=== PATIENT | female | born 1955 | race Caucasian/White ===

== ENCOUNTER 2017-05-19 07:26 | Day surgery (SDC) | payer BC ==
[~2017-05-19 07:26] MED LIST: Acetaminophen TAB* 325 MG PO PRN; Buffered Lidocaine 0.9% SYRIN* 5 ML/SYR SYRINGE INTRADERM ONE
[2017-05-19] MEDS ORDERED: Midazolam* 1 MG/ML 2 ML VIAL (2 MG) ONE (09:05)
[2017-05-19 10:06] VITALS: BP 117/69
[2017-05-19] MEDS ORDERED: Cyclopentolate 1% OPTH.SOL* 2 ML BTL ONE (10:36)
[2017-05-19] MEDS ORDERED: Ketorolac 0.5% OPHTH (NF) 0.5 % 5 ML BTL ONE (10:36)
[2017-05-19] MEDS ORDERED: Lidocaine 2% EPI 1:200000 MPF* 20 ML VIAL ONE (10:36)
[2017-05-19] MEDS ORDERED: Lidocaine 1% MPF* 2 ML VIAL ONE (10:36)
[2017-05-19] MEDS ORDERED: acetaZOLAMIDE TAB* 250 MG ONE (10:36)
[2017-05-19] MEDS ORDERED: Povidone Iodine 5% OPTH* 30 ML BTL ONE (10:36)
[2017-05-19] MEDS ORDERED: Phenylephrine 2.5% OPTH.SOL* 2 ML BTL ONE (10:36)
[2017-05-19] MEDS ORDERED: Neomycin/Polymy/Dex OPTH.SUSP* MAXITROL 0.1% 5 ML ONE (10:36)
[2017-05-19] MEDS ORDERED: Proparacaine 0.5% OPHTH.SOL* 15 ML BTL ONE (10:36)
--- NOTE | 2017-05-19 11:22 | OP ---
DATE OF OPERATION: 05/19/2017. DATE OF : 1955. SURGEON: Ger Diaz M.D. PREOPERATIVE DIAGNOSIS: Cataract right eye. POSTOPERATIVE DIAGNOSIS: Cataract right eye. OPERATIVE PROCEDURE: Extracapsular cataract extraction with intraocular lens implant right eye. PROCEDURE: The patient was brought to the operating room after being given 1/2% Alcaine with epineph rine drops in the preoperative area. The eye was prepped and draped in the usual sterile fashion. S terile drape and eyelid speculum were placed. Again, topical 1/2% Alcaine with epinephrine was given . A paracentesis incision was made at the 9 o'clock position with the No.75 blade. Clear cornea inc ision 2.2 x 2.2-mm was created at the 12 o'clock position starting at the anterior limbus using the 2 .2-mm keratome. The anterior chamber was irrigated with 0.4 mL of 1% non-preservative intracameral l idocaine and filled with DisCoVisc. A capsulorrhexis was completed using the cystotome and the Utrat a forceps. Hydrodissection was performed with balanced salt solution. The lens nucleus was removed w ith the Phacoemulsification handpiece without incident. Cortex was removed with the irrigation-aspir ation handpiece. The capsular bag was re-inflated using DisCoVisc and an [id number] implant was inser rick with the shooter. The irrigation-aspiration handpiece was used to remove all residual DisCoVisc. The eye was refilled with balanced salt solution and the wound checked and found to be watertight. Topical Maxitrol drops were given. [id number]/[facility] #: [id number]
== END 2017-05-19 10:00 | disposition home or self-care (01) ==
LOC: OREAST 07:26
PROVIDERS: ATTEND Specialist
DX: H25.813 Combined forms of age-related cataract, bilateral (principal); H40.053 Ocular hypertension, bilateral; J30.2 Other seasonal allergic rhinitis; I10 Essential (primary) hypertension; E78.00 Pure hypercholesterolemia, unspecified; F32.9 Major depressive disorder, single episode, unspecified; R53.83 Other fatigue; E55.9 Vitamin D deficiency, unspecified; F17.210 Nicotine dependence, cigarettes, uncomplicated; Z79.82 Long term (current) use of aspirin; Z88.8 Allergy status to other drugs, medicaments and biological substances; Z83.511 Family history of glaucoma; Z11.59 Encounter for screening for other viral diseases
CPT/HCPCS: A9270-GY; J2250; V2632

== ENCOUNTER 2017-05-26 06:51 | Day surgery (SDC) | payer BC ==
[2017-05-26] MEDS ORDERED: fentaNYL* 50 MCG/ML 2 ML VIAL (100 MCG VIAL) ONE (07:40)
[2017-05-26] MEDS ORDERED: Midazolam* 1 MG/ML 2 ML VIAL (2 MG) ONE (07:40)
[2017-05-26 08:42] VITALS: BP 107/63
[2017-05-26] MEDS ORDERED: Lidocaine 2% EPI 1:200000 MPF* 20 ML VIAL ONE (11:50)
[2017-05-26] MEDS ORDERED: Proparacaine 0.5% OPHTH.SOL* 15 ML BTL ONE (11:50)
[2017-05-26] MEDS ORDERED: Neomycin/Polymy/Dex OPTH.SUSP* MAXITROL 0.1% 5 ML ONE (11:50)
[2017-05-26] MEDS ORDERED: acetaZOLAMIDE TAB* 250 MG ONE (11:50)
[2017-05-26] MEDS ORDERED: Povidone Iodine 5% OPTH* 30 ML BTL ONE (11:50)
[2017-05-26] MEDS ORDERED: Phenylephrine 2.5% OPTH.SOL* 2 ML BTL ONE (11:50)
[2017-05-26] MEDS ORDERED: Cyclopentolate 1% OPTH.SOL* 2 ML BTL ONE (11:50)
[2017-05-26] MEDS ORDERED: Lidocaine 1% MPF* 2 ML VIAL ONE (11:50)
[2017-05-26] MEDS ORDERED: Ketorolac 0.5% OPHTH (NF) 0.5 % 5 ML BTL ONE (11:50)
--- NOTE | 2017-05-26 13:54 | OP ---
DATE OF OPERATION: 05/26/17 - [facility] DATE OF : 55. SURGEON: Ger Diaz M.D. PREOPERATIVE DIAGNOSIS: Cataract left eye. POSTOPERATIVE DIAGNOSIS: Cataract left eye. OPERATIVE PROCEDURE: Extracapsular cataract extraction with intraocular lens implant left eye. DESCRIPTION OF PROCEDURE: The patient was brought to the operating room after being given 1/2% Alcaine with epinephrine drops in the preoperative area. The eye was prepped and draped in the usual sterile fashion. Sterile drape and eyelid speculum were placed. Again, topical 1/2% Alcaine with epinephrine was given. A paracentesis incision was made at the 3 o'clock position with the No.75 blade. Clear cornea incision 2.2 x 2.2-mm was created at the 6 o'clock position starting at the anterior limbus using the 2.2-mm keratome. The anterior chamber was irrigated with 0.4 mL of 1% non-preservative intracameral lidocaine and filled with DisCoVisc. A capsulorrhexis was completed using the cystotome and the Utrata forceps. Hydrodissection was performed with balanced salt solution. The lens nucleus was removed with the Phacoemulsification handpiece without incident. Cortex was removed with the irrigation-aspiration handpiece. The capsular bag was re-inflated using DisCoVisc and an [id number] 24 implant was inserted with the shooter. The irrigation-aspiration handpiece was used to remove all residual DisCoVisc. The eye was refilled with balanced salt solution and the wound checked and found to be watertight. Topical Maxitrol drops were given. [id number]/[facility] #: [id number] MTDD
== END 2017-05-26 08:37 | disposition home or self-care (01) ==
LOC: OREAST 06:51
PROVIDERS: ATTEND Specialist
DX: H25.812 Combined forms of age-related cataract, left eye (principal); H40.053 Ocular hypertension, bilateral; Z83.511 Family history of glaucoma; F17.210 Nicotine dependence, cigarettes, uncomplicated; I10 Essential (primary) hypertension
CPT/HCPCS: A9270-GY; J2250; J3010; V2632

== ENCOUNTER 2018-11-21 08:18 | Observation (INO) | payer BC ==
[2018-11-21] MEDS ORDERED: Diazepam TAB(*) 5 MG ONE (09:31)
[2018-11-21] MEDS ORDERED: diPHENhydraMINE PO* 25 MG ONE (09:31)
[2018-11-21] MEDS ORDERED: Aspirin 81 mg CHEW TAB* 81 MG TAB.CHEW ONE (10:08)
[2018-11-21] MEDS ORDERED: fentaNYL* 50 MCG/ML 2 ML VIAL (100 MCG VIAL) ONE (10:22)
[2018-11-21] MEDS ORDERED: Midazolam* 1 MG/ML 5 ML VIAL (5 MG) ONE (10:22)
[2018-11-21] MEDS ORDERED: Lidocaine 1% INJ* 10 MG/ML 30 ML SDV ONE (10:22)
[2018-11-21] MEDS ORDERED: Heparin 2 UNITS/ML IVPREMIX* 3,000 ML IV ONE (10:22)
[2018-11-21] MEDS ORDERED: nitroGLYCERIN DRIP* 25,000 MCG/250 ML BTL ONE (10:22)
[2018-11-21] MEDS ORDERED: Iohexol 350 (CONTRAST) 200 ML MDV IV ONE ×3 (10:23→11:59)
[2018-11-21] MEDS ORDERED: Heparin(*) 1000 UNIT/ML 10 ML VIAL CATH LAB IV ONE (10:24)
[2018-11-21] MEDS ORDERED: VERAPAMIL 2.5 MG/ML 2 ML VIAL ** 5 mg/2 ml ONE (10:24)
[2018-11-21] MEDS ORDERED: Adenosine* 3 MG/ML VIAL ONE (11:16)
[2018-11-21] MEDS ORDERED: Ticagrelor* 90 MG TAB PO ONE (11:38)
[2018-11-21] MEDS ORDERED: Docusate CAP* 100 MG PO PRN (12:14)
[2018-11-21] MEDS ORDERED: Ondansetron INJ* 2 MG/ML VIAL IV PRN (12:14)
[2018-11-21] MEDS ORDERED: Acetaminophen TAB* 325 MG PO PRN (12:14)
[2018-11-21] MEDS ORDERED: Nitroglycerin TAB 0.4 MG* 0.4 MG TAB SL PRN (12:14)
[2018-11-21] MEDS ORDERED: Zolpidem TAB* 5 MG PO PRN (12:14)
[2018-11-21] MEDS ORDERED: NS 0.9% 1000 ML** 1,000 ML IV SCH (12:15)
[2018-11-21] MEDS ORDERED: Albuterol HFA INHALER* 8 gm MDI INH PRN (12:20)
--- NOTE | 2018-11-21 17:01 | CATH ---
"*[facility]* [address] [address] Main: [phone] [email or web address] Cardiac Catheterization Patient: Sean Osborn : 1955 Study Date: 11/21/2018 Age: 63 Gender: F HR: Height: 62 in /157.5 cm BSA: 1.89 m^2 Weight: 174 lb /79.1 kg BMI: 31.9 kg/m^2 Hand Candy Dipper: Tate Meza MD Ordering Physician: Tate Meza MD Referring Physician: Tate Meza MD, Derrick Freeman, --- - Left coronary angiography. - Left heart catheterization with angiography. Summary: 1. Right coronary: Proximal vessel lesion: There is an 80% stenosis. 2. Left ventricle: Systolic function is normal. The estimated ejection fraction is 55-60%. Recommendations: The patient should undergo coronary percutaneous coronary intervention. History: Risk factors: Current tobacco use. Hypertension. Dyslipidemia. Family history is significant for coronary artery disease. Labs, prior tests, procedures, and surgery: Blood tests: International normalized ratio (INR) of 0.92. Partial thromboplastin time (PTT) of 60 sec. Serum potassium (K) of 4.1 mEq/l. Serum sodium (Na) of 139 mEq/l. Serum creatinine (current admission) of 0.82 mg/dl. Blood urea nitrogen of 12 mg/dl. Glucose of 101 mg/dl. Platelet count of 268 th/ul. White blood cell count (WBC) of 0.01 th/ul. Red blood cell count (RBC) of 4580 th/ul. Hematocrit of 42 %. Hemoglobin (pre-procedure) of 14.5 g/dl. Study data: Study status: Cardiac cath: elective. Percutaneous coronary intervention: elective. Other percutaneous coronary intervention indication. Location: Catheterization laboratory. Consent: The risks, benefits, and alternatives to the procedure were explained to the patient and/or their healthcare chemical sales representative and written informed consent was obtained. All available pre-procedure labs were reviewed. Height: 157.5 cm. 62 in. Weight: 79.1 kg. 174 lb. Body surface area: 1.89 m^2. Body mass index: 31.9 kg/m^2. Procedure: 1. Initial setup. The patient was brought to the laboratory. Surface ECG leads, blood pressure measurements, and pulse oximetric signals were monitored. A baseline seven lead ECG was recorded. A time out was observed per protocol. 2. Skin preparation. The planned puncture sites were prepped and draped in the usual sterile manner. 3. Local anesthesia. 1% lidocaine was administered. 4. Sedation. was administered. 5. Supplemental oxygen. Oxygen, 2 L/min was administered throughout the procedure. 6. Local anesthesia. 1% lidocaine (3 ml) was administered. 7. Right radial artery access. A 6F Glidesheath Slender sheath was advanced into the vessel. 8. Selective left coronary angiography. A 5F TIG 4.0 catheter was advanced into the left coronary vessel ostium under fluoroscopic guidance. Contrast was injected. Images were obtained in multiple projections. 9. Left heart catheterization with angiography. A 5F PIG Short Radial catheter was advanced across the aortic valve to the left ventricle under fluoroscopic guidance. 35 ml of contrast was injected at 10 ml/s. Study completion: Minimal estimated blood loss. All catheters inserted during the procedure were removed. There were no apparent complications. Administered medications: VALIUM (Diazepam), 5mg, PO. BENADRYL (Diphenhydramine), 25mg, PO. Aspirin, 81mg, PO. Fentanyl, 25mcg, IV. (Radial) Nitroglycerin, 300mcg, intra-arterially. (Radial) Verapamil, 3mg, intra-arterially. (Radial) Heparin, 3,000units, intra-arterially. VERSED (Midazolam), for a total dose of 3mg, IV. NaCl 0.9% , infusion , at a rate of 100 ml/hr. Contrast: Omnipaque 350 80 ml (total dose). Radiation: Fluoroscopy dose: 208.9 cGy. Discharge: The patient tolerated the procedure well and was discharged from the lab in stable condition. Findings Coronary arteries: The coronary circulation is right dominant. Left main: Moderately calcified. Lesion: There is a 0% stenosis. LAD: Moderately calcified. Minor luminal irregularities. Left circumflex: Mildly calcified. Minor luminal irregularities. Right coronary: Calcified. Proximal vessel lesion: There is an 80% stenosis. Mitral valve: There is no significant regurgitation. Left ventricle: Systolic function is normal. The estimated ejection fraction is 55-60%. Hemodynamics: + + + |Stage description |Condition 1 - | + + + |LV pressure s/d, ed |115/15, 28, dP/ld=2238 mm Hg/s| + + + |Arterial pressure s/d (m)|119/69 (91) | + + + Prepared and electronically signed by Tate Meza MD 11/21/2018 17:00"
[2018-11-21] MEDS ORDERED: Aspirin EC TAB* 81 MG TAB.EC PO SCH ×2 (18:00→21:00)
[2018-11-21] MEDS: Baclofen TAB* 10 MG PO SCH (20:56)
[2018-11-21] MEDS: Ticagrelor* 90 MG TAB PO SCH (20:58)
[2018-11-21] MEDS ORDERED: Fluticasone NASAL SPRAY 50MCG* 16 gm SPRAY BTL BOTH NARES SCH (21:00)
[2018-11-21] MEDS ORDERED: Mometasone 220 MCG MDI INH SCH (21:00)
[2018-11-21] MEDS ORDERED: Montelukast Sodium TAB* 10 MG PO SCH (21:00)
[2018-11-21] MEDS ORDERED: Gabapentin CAP(*) 300 MG PO SCH (21:00)
[2018-11-21] MEDS ORDERED: DULoxetine DR CAP* 60 MG CAP.DR PO SCH (21:00)
[2018-11-21] MEDS ORDERED: PROPRANOLOL 160 MG PO SCH (21:00)
[2018-11-21] MEDS ORDERED: Nortriptyline CAP* 10 MG PO SCH (21:00)
[2018-11-21] MEDS ORDERED: Atorvastatin* 20 MG TAB PO SCH (21:00)
[2018-11-21] MEDS ORDERED: Topiramate TAB(*) 100 MG PO SCH (21:00)
[2018-11-22 05:42] LABS: ABS Lymphocytes 1.8 10^3/ul (1.0-4.8); ABS Monocytes 0.6 10^3/ul (0-0.8); ABS Neutrophils 3.9 10^3/ul (1.5-7.7); Eosinophil % 0.1 %; Hematocrit 37 % (35-47); Hemoglobin 12.8 g/dL (12.0-16.0); Lymphocyte % 28.3 %; Mean Corpuscular HGB Conc 35 g/dL (31-36); Mean Corpuscular Hemoglobin 31 pg (27-31); Mean Corpuscular Volume 90 fL (80-97); Mean Platelet Volume 7.4 fL (7.4-10.4); Nucleated Red Blood Cells % 0.1; Platelet Count 226 10^3/uL (150-450); Red Blood Count 4.11 10^6 /uL (3.70-4.87); Red Cell Distribution Width 14 % (10-15); White Blood Count 6.3 10^3/uL (3.5-10.8)
[2018-11-22 05:58] LABS: BUN/Creatinine Ratio 16.2 (8-20); Calcium 8.1 mg/dL (8.6-10.3); EGFR African American 105.7 (>60); EGFR Non-African American 87.4 (>60); HDL Cholesterol 39.2 mg/dL; Potassium 3.5 mmol/L (3.5-5.0)
[2018-11-22] MEDS ORDERED: Potassium Chlor TAB* 10 MEQ TAB.ER PO ONE (08:38)
[2018-11-22] MEDS ORDERED: BIOTIN 1000 MCG PO SCH (09:00)
[2018-11-22] MEDS ORDERED: VIT C PO SCH (09:00)
[2018-11-22] MEDS ORDERED: Cetirizine* 10 MG TAB PO SCH (09:00)
[2018-11-22] MEDS ORDERED: Furosemide TAB* 40 MG PO SCH (09:00)
[2018-11-22] MEDS ORDERED: Pantoprazole TAB * 40 MG TAB PO SCH (09:00)
[2018-11-22] MEDS ORDERED: Cholecalciferol TAB* 1000 UNITS PO SCH (09:00)
[2018-11-22] MEDS ORDERED: CRANBERRY FRUIT EXTRACT PO SCH (09:00)
[2018-11-22] MEDS ORDERED: Cyanocobalamin TAB* 500 MCG PO SCH (09:00)
[2018-11-22] MEDS: Baclofen TAB* 10 MG PO SCH (09:22)
[2018-11-22] MEDS: Ticagrelor* 90 MG TAB PO SCH (09:22)
--- NOTE | 2018-11-22 10:22 | CATH ---
CC: Dr. Tate Meza; Dr. Amy Velasquez * INTERVENTIONAL REPORT: DATE OF PROCEDURE: 11/21/18 INDICATIONS FOR PROCEDURE: Asked by Dr. Tate Meza to perform further analysis of mid right coronary artery lesion with fractional flow reserve analysis and possible intervention in light of history of abnormal stress test and chest discomfort. PROCEDURE: Fractional flow reserve analysis of the mid right coronary artery, balloon angioplasty, and placement of a 2.75 x 15 mm long Orsiro sirolimus drug - eluting stent post dilated to 2.8 mm. EQUIPMENT UTILIZED FOR THE INTERVENTIONAL PROCEDURE: 1. The guide coronary catheter was a 6-Kyrgyz III IR 1 curve guide catheter. 2. The pressure wire utilized was a [employer]ev[employer] PressureWire X. 3. The guidewires utilized were All-Star 190 cm length and a BMW 190 cm length. 4. The initial balloon catheter was a 2.5 x 12 mm long NC Emerge balloon. 5. The stent utilized was 2.75 x 12 mm Orsiro sirolimus drug-eluting stent. 6. The poststent deployment balloon catheter was a 2.75 x 8 mm long NC Emerge balloon. 7. The closure device was a regular length Vasc Band by [employer]. MEDICATIONS GIVEN: Specifically with the interventional procedure included crushed 180 mg of Brilinta and additional heparin therapy to obtain therapeutic ACT. Intracoronary nitroglycerin as well as the intracoronary adenosine for the FFR procedure. DESCRIPTION OF PROCEDURE: The patient had already undergone diagnostic coronary catheterization by Dr. Tate Meza with an existing 6-Kyrgyz sheath in place. Coronary arteriography guide views of the right coronary artery were obtained utilizing the guide catheter. ACT was checked and additional heparin therapy was given as needed. The fractional flow reserve wire was calibrated and then advanced across the distal lesion, and the patient received 72 mcg of intracoronary adenosine. FFR was obtained and found to be abnormal (.71, consistent with a hemodynamically significant lesion). Following this, a decision was made to intervene into the right coronary artery mid lesion. The patient received 180 mg Brilinta crushed. An All-Star wire was initially utilized across the lesion. Because of significant pseudolesions created by this guidewire, a BMW guidewire was then utilized. Balloon angioplasty was initially performed utilizing the 2.5 x 12 mm long balloon followed by stent deployment and postdeployment balloon inflations with 2.75 x 8 mm long NC Emerge balloon to high pressure. Following this, the artery was assessed in multiple views. RESULTS: Successful reduction of 75% lesion in the mid right coronary artery, with balloon angioplasty and stenting utilizing the 2.75 x 15 mm long Orsiro sirolimus drug-eluting stent post dilated to 2.8 mm with FAUSTO 3 flow. No dissection seen and less than 5% residual stenosis noted. OVERALL ASSESSMENT: Successful intervention into FFR-proven hemodynamically significant mid lesion right coronary artery. Dual antiplatelet therapy is recommended for a minimum of 6 months to a year's time. Aggressive risk factor management under careful guidance of Dr. Amy Velasquez and Dr. Tate Meza will be pursued. The patient will follow up with with Dr. Tate Meza for wound check within the next 7 to 10 days. [id number]/[facility] #: [id number] MTDD
--- NOTE | 2018-11-22 10:57 | DS ---
DISCHARGE SUMMARY: ADDENDUM: The right radial access site was inspected by Dr. Tate Meza. There is a small hematoma. Pulses are intact. Sensation is intact. Cap refill is still less than 3 seconds. Thus, the patient is stable to be discharged home. Dr. Tate Meza has personally seen and examined the patient and agrees with the above assessment and plan. RYLAND MARQUES NP [id number]/[facility] #: [id number] KENIA
--- NOTE | 2018-11-22 11:14 | DS ---
AMENDED REPORT NOW INCLUDES DESIGNATED COSIGNER AND DATES OF ADMISSION/ DISCHARGE ADDENDUM NOW INCLUDED ON THIS REPORT CC: Dr. Amy Velasquez * DISCHARGE SUMMARY: DATE OF ADMISSION: 11/21/18 DATE OF DISCHARGE: 11/22/18 PRIMARY PHYSICIAN: Dr. Amy Velasquez. PRIMARY TIER AND DETONATOR: Dr. Tate Meza.* (DICTATED BY RYLAND MARQUES NP) ADMITTING DIAGNOSES: 1. Abnormal CT suggestive of coronary calcification. 2. Atypical chest pain. 3. Diabetes. 4. Hyperlipidemia. DISCHARGE DIAGNOSES: 1. Status post drug-eluting stent to proximal right coronary artery due to abnormal cardiovascular study with atypical chest pain, now on aspirin 81 mg a day in combination with Brilinta 90 mg p.o. b.i.d., simvastatin 40 mg a day, and propranolol therapy. 2. History of hyperlipidemia, on simvastatin 40 mg a day. LDL this admit was 123. She is instructed to follow up with Dr. Tate Meza on 11/29/18 for discussion in regard to advancing hyperlipidemia treatment. Goal LDL is less than 72 due to newly diagnosed coronary artery disease. 3. History of diabetes, on metformin therapy. I have asked the patient to resume metformin therapy on 11/23/18 due to contrast dye administration for cardiac catheterization. She verbalized understanding. We will repeat basic metabolic panel in 7 days to ensure renal function is stable. 4. History of hypertension, on propranolol therapy. Blood pressure is stable. PROCEDURES PERFORMED: The patient underwent left heart catheterization by Dr. Tate Meza on 11/21/18. Per report; left main is moderately calcified, no stenosis. LAD moderately calcified, minor luminal irregularity. Left circumflex mildly calcified, minor luminal irregularity. Right coronary artery calcified proximal vessel lesion, 80% stenosis. There was no significant mitral regurgitation. LVEF 55% to 60%. The patient underwent drug-eluting stent placement to proximal RCA by Dr. Theodore Lacy. For further information, please review procedure report. COMPLICATIONS: The patient had some minor swelling noted above the right radial access site, nontender. COURSE OF HOSPITAL STAY: This is a pleasant 63-year-old female patient who was seen in consultation by Dr. Tate Meza on 11/09/18 due to ongoing complaints of chest discomfort in addition to abnormal coronary calcification noted on CT. The patient had described to Dr. Meza that she would sometimes develop left- sided chest discomfort described as a heaviness, occasionally radiating down her right arm in addition to dyspnea on exertion. Because of the new onset of symptoms and calcification noted on CT, it was decided to proceed with cardiac catheterization. Prior to the procedure performed, she had basic blood work on 11/16/18. Hemoglobin was 14.5, hematocrit 42, platelets 268. INR 0.92. Potassium 4.1, creatinine 0.82, sodium 139. She underwent the above-mentioned procedure and post procedure was returned to the ICU for observation overnight. Apparently, yesterday evening post procedure, there was swelling noted above the right radial access site, which has not worsened. The patient states it is actually improved since yesterday evening. She denies pain with movement. Does report slight discomfort with palpation. She had updated labs on 11/22/18. LDL was noted to be 123, triglycerides 491, and cholesterol 226. She is historically on simvastatin 40 mg a day and reports compliance. I have asked her to follow up with Dr. Tate Meza on 11/29/18 for consideration of advancing regimen. She was asked to resume metformin on 11/23/18 to avoid contrast-induced nephropathy. She is to have repeat labs including chemistry next week to reevaluate renal function. Creatinine yesterday was 0.68. She offers no complaints at this time and is stable. Last set of vital signs: Temperature was 97.9, pulse 67, oxygenation 95% on room air, blood pressure 138/ 71. She was started on Brilinta therapy and has a prescription for a three 30- day supply, which is in her chart. At this current time, I have asked the nursing staff to ensure the patient is able to ambulate the halls adequately and will have Dr. Tate Meza evaluate the right radial access site. There is no notable hematoma on physical exam today, just slight swelling. She has strong radial and ulnar pulses with good sensation and cap refill is less than 3 seconds. DISCHARGE CONDITION: The patient is stable and plan is to discharge home later today pending no complications. DISCHARGE MEDICATIONS: 1. Aspirin 81 mg a day. 2. Brilinta 90 mg p.o. b.i.d. 3. Metformin 1500 mg p.o. daily, resuming on 11/23/18. 4. Topamax 200 mg p.o. at bedtime. 5. Simvastatin 40 mg p.o. daily. 6. Propranolol 160 mg a day. 7. K-Chlor 10 mEq a day. 8. Protonix 40 mg a day. 9. Nortriptyline 20 mg a day. 10. Singulair 10 mg p.o. at bedtime. 11. Vicodin as needed p.r.n. 12. Gabapentin 300 mg a day. 13. Lasix 40 mg a day. 14. Ventolin HFA 2 puffs inhalation q.4 h. p.r.n. 15. Baclofen 10 mg p.o. b.i.d. OUTPATIENT LABS TO BE OBTAINED: BMP on 11/29/18. The script was already signed and sent via EHR. FOLLOWUP APPOINTMENTS: The patient is to follow up with Dr. Tate Meza on at 1:15 at the medical office building and primary physician, Dr. Amy Velasquez, in 7 to 10 days. DISCHARGE ACTIVITY RESTRICTIONS: The patient is to not drive for 24 hours. She is to not lift more than 5 to 10 pounds until further directed on followup on 11/29/18. She was instructed that she may shower, but not soak the right radial access site. She is aware that should she have any additional swelling, loss of sensation, pain or limited range of motion to occur with the right radial access site, she is to seek medical evaluation either at the emergency department or contact our office. DISPOSITION: The plan is to discharge home later today pending no complications. RYLAND MARQUES NP ADDENDUM: The right radial access site was inspected by Dr. Tate Meza. There is a small hematoma. Pulses are intact. Sensation is intact. Cap refill is still less than 3 seconds. Thus, the patient is stable to be discharged home. Dr. Tate Meza has personally seen and examined the patient and agrees with the above assessment and plan. RYLAND MARQUES NP [id number]/[facility] #: [id number] /[id number]/[facility] #: [id number] MTDD
[2018-11-22 11:17] VITALS: BP 114/61
== END 2018-11-22 12:00 | disposition home or self-care (01) ==
LOC: CHICATH 08:18 → ICU 12:15
PROVIDERS: ADMIT Specialist; ATTEND Specialist
DX: R07.89 Other chest pain (principal); R94.31 Abnormal electrocardiogram [ECG] [EKG]; I25.84 Coronary atherosclerosis due to calcified coronary lesion; I20.9 Angina pectoris, unspecified; R93.89 Abnormal findings on diagnostic imaging of other specified body structures; E11.9 Type 2 diabetes mellitus without complications; E78.5 Hyperlipidemia, unspecified; Z79.82 Long term (current) use of aspirin; Z79.899 Other long term (current) drug therapy; F32.9 Major depressive disorder, single episode, unspecified; G43.909 Migraine, unspecified, not intractable, without status migrainosus; L30.9 Dermatitis, unspecified
CPT/HCPCS: 36415; 80048; 80061; 82553; 83721; 85025; 85347; 87641; 93005; 93458; 94640; 99156; 99157; A9270-GY; C1725; C1769; C1874; C9600-RC; G0378; J0153; J1644; J2250; J3010